=== PATIENT | male | born 1975 | race Caucasian/White ===

== ENCOUNTER 2016-11-30 12:27 | Emergency (ER) | payer MEDICAID ==
[~2016-11-30] VITALS: Ht 170.2 cm; Wt 90.9 kg
[~2016-11-30 12:27] MED LIST: NOCURR
[2016-11-30] MEDS ORDERED: HYDROCODONE/ACETAMINOPHEN 10-325 MG TABLET PO ONE (13:15)
[2016-11-30 14:50] VITALS: BP 140/78
== END 2016-11-30 14:53 | disposition home or self-care (01) ==
LOC: EMS 12:30
DX: S20.212A Contusion of left front wall of thorax, initial encounter (principal); E78.00 Pure hypercholesterolemia, unspecified; F17.210 Nicotine dependence, cigarettes, uncomplicated; F12.90 Cannabis use, unspecified, uncomplicated; Y04.2XXA Assault by strike against or bumped into by another person, initial encounter; Y93.89 Activity, other specified; Y92.59 Other trade areas as the place of occurrence of the external cause; Y99.8 Other external cause status
CPT/HCPCS: 71101; 99284

== ENCOUNTER 2016-12-14 16:54 | Emergency (ER) | payer MEDICAID ==
[~2016-12-14] VITALS: Ht 167.6 cm; Wt 90.9 kg
[2016-12-14 17:04] VITALS: BP 136/99
== END 2016-12-14 19:03 | disposition left against medical advice (07) ==
LOC: EMS 16:55
DX: R07.81 Pleurodynia (principal); E78.00 Pure hypercholesterolemia, unspecified; F17.210 Nicotine dependence, cigarettes, uncomplicated; F12.90 Cannabis use, unspecified, uncomplicated; Z53.21 Procedure and treatment not carried out due to patient leaving prior to being seen by health care provider

== ENCOUNTER 2016-12-17 14:56 | Emergency (ER) | payer MEDICAID ==
[~2016-12-17] VITALS: Ht 170.2 cm; Wt 90.5 kg
[2016-12-17] MEDS ORDERED: NAPROXEN 250 MG TABLET PO ONE (16:15)
[2016-12-17] MEDS ORDERED: METHOCARBAMOL 500 MG TABLET PO ONE (16:15)
[2016-12-17] MEDS ORDERED: LIDOCAINE HCL 5% TRANSDERMAL PATCH TD ONE (16:15)
[2016-12-17 17:03] VITALS: BP 146/89
== END 2016-12-17 17:14 | disposition home or self-care (01) ==
LOC: EMS 14:59
DX: S20.212A Contusion of left front wall of thorax, initial encounter (principal); E78.00 Pure hypercholesterolemia, unspecified; F17.210 Nicotine dependence, cigarettes, uncomplicated; F12.90 Cannabis use, unspecified, uncomplicated; Y04.0XXA Assault by unarmed brawl or fight, initial encounter; Y93.89 Activity, other specified; Y92.89 Other specified places as the place of occurrence of the external cause; Y99.8 Other external cause status
CPT/HCPCS: 99283

== ENCOUNTER 2018-03-02 11:52 | Emergency (ER) | payer MEDICAID ==
[~2018-03-02] VITALS: Ht 172.7 cm; Wt 90.5 kg
[2018-03-02 12:02] VITALS: BP 119/96
== END 2018-03-02 14:02 | disposition left against medical advice (07) ==
LOC: EMS 12:42
DX: L03.115 Cellulitis of right lower limb (principal); E78.00 Pure hypercholesterolemia, unspecified; F17.210 Nicotine dependence, cigarettes, uncomplicated; F12.90 Cannabis use, unspecified, uncomplicated

== ENCOUNTER 2023-06-16 09:17 | Emergency (ER) | payer MEDICAID, OTHER ==
[~2023-06-16] VITALS: Ht 172.7 cm; Wt 90.9 kg
[2023-06-16 09:36] VITALS: BP 148/109; PULSE 92; RESP 16; TEMP 98
== END 2023-06-16 11:04 | disposition left against medical advice (07) ==
LOC: EMS 09:17
DX: M54.2 Cervicalgia (principal); Z53.21 Procedure and treatment not carried out due to patient leaving prior to being seen by health care provider
CPT/HCPCS: 99281; Z7502